=== PATIENT | female | born 1960 | race Two or more races ===

== ENCOUNTER 2020-01-04 07:19 | Outpatient (CLI) | payer OTHER ==
[2020-01-06] MEDS ORDERED: [UNRECOGNIZED DRUG - OTHER] (14:08)
== END 2020-01-04 07:30 | disposition home or self-care (01) ==
LOC: EDBD 07:19 → NUCLEAR 07:19
DX: R10.11 Right upper quadrant pain (principal); K80.20 Calculus of gallbladder without cholecystitis without obstruction; K57.30 Diverticulosis of large intestine without perforation or abscess without bleeding
CPT/HCPCS: 78227; A9537; J2805

== ENCOUNTER → 2020-01-06 | Emergency (ER) | payer OTHER ==
[~2020-01-06] VITALS: Ht 162.6 cm; Wt 56.7 kg
[~2020-01-06] MED LIST: [UNRECOGNIZED DRUG - OTHER]
== END | disposition home or self-care (01) ==
LOC: ER 13:45
DX: R10.13 Epigastric pain (principal)